=== PATIENT | female | born 1950 | race Two or more races ===

== ENCOUNTER 2025-02-12 20:00 | Emergency (ER) | payer OTHER ==
[~2025-02-12] VITALS: Ht 157.5 cm; Wt 52.2 kg
[2025-02-12 20:30] VITALS: BP 107/68; O2SAT 97
[2025-02-12] MEDS ORDERED: LOSARTAN POTASS25 MG PO (20:31)
[2025-02-12] MEDS ORDERED: TOPROL XL50 M1 PO (20:31)
[2025-02-12] MEDS ORDERED: BENZONATATE200 M1 PO (20:42)
== END 2025-02-12 20:45 | disposition home or self-care (01) ==
LOC: ER 20:00
DX: U07.1 COVID-19 (principal); I10 Essential (primary) hypertension; Z85.3 Personal history of malignant neoplasm of breast; E11.9 Type 2 diabetes mellitus without complications